=== PATIENT | male | born 1955 | race Caucasian/White ===

== ENCOUNTER 2024-04-25 17:39 | Emergency (ER) | payer MEDICARE, BC ==
[~2024-04-25] VITALS: Ht 175.3 cm; Wt 104.3 kg
[2024-04-25] MEDS ORDERED: NALOXONE 4 MG NASAL SPRAY #2 HOME.PACK NAS ONE (18:00)
[2024-04-25] MEDS ORDERED: MORPHINE SULFATE 15 MG TAB PO ONE (18:00)
[2024-04-25] MEDS ORDERED: METOPROLOL SUCC50 MG PO (18:02)
[2024-04-25] MEDS ORDERED: LEVOTHYROXINE125 MCG PO (18:02)
[2024-04-25] MEDS ORDERED: SIMVASTATIN20 MG PO (18:02)
[2024-04-25] MEDS ORDERED: NALOXONE HCL4 MG NS (18:03)
[2024-04-25] MEDS ORDERED: MORPHINE SULFAT30 M2 PO (18:03)
[2024-04-25] MEDS ORDERED: HYDROCODON-ACE1 EA10 PO (18:03)
[2024-04-25] MEDS ORDERED: DEXAMETHASONE2 MG PO (18:04)
[2024-04-25] MEDS ORDERED: MORPHINE SULFAT15 MG PO (18:06)
[2024-04-25 18:22] VITALS: BP 141/85
== END 2024-04-25 18:23 | disposition home or self-care (01) ==
LOC: ED 17:39
DX: G89.3 Neoplasm related pain (acute) (chronic) (principal); C41.2 Malignant neoplasm of vertebral column; C71.9 Malignant neoplasm of brain, unspecified; Z88.5 Allergy status to narcotic agent; Z91.048 Other nonmedicinal substance allergy status
CPT/HCPCS: 99283; J3490